=== PATIENT | female | born 1940 | race Caucasian/White ===

== ENCOUNTER 2017-06-27 02:12 | Emergency (ER) | payer MEDICARE ==
[~2017-06-27] VITALS: Ht 154.9 cm; Wt 56.8 kg
[2017-06-27 02:09] VITALS: BP 149/73; PULSE 89; RESP 17; O2SAT 92
[~2017-06-27 02:12] MED LIST: ALBU8.5H2 IH; BUDE0.5A2 IH; IPRA0.2S51 IH; IPRA3AMP18 IH; PANT40TA3 PO; PRE20 PO
[2017-06-27 02:23] LABS: BASOPHILS % (AUTO) 0.2 % (0-3); MONOCYTES % (AUTO) 5.7 % (4-12); Mean Corpuscular Hemoglobin 30.2 pg (27.0-35.0); Mean Corpuscular Volume 90.5 fL (81-100); NEUTROPHILS % (AUTO) 66.2 % (40-74); Platelet Count 276 bil/L (150-400)
--- NOTE | 2017-06-27 03:02 | ED.REPORT ---
HPI-Chest Pain 40 and Over Date of Service Jun 27, 2017 ED Provider: Darian Hester MD Pt is a 76 y/o female with a history of COPD who presents to the ED via EMS c/o burning sensation in her lungs onset yesterday. Additional symptoms include nausea, diarrhea, neck pain from spinal stenosis, and a productive cough. She denies fever. She saw her PCP yesterday and was started on augmentin. Nursing Notes Stated Complaint: CHEST PAIN Chief Complaint: Chest Pain Nursing Notes Reviewed: Yes Allergies: Coded Allergies: carisoprodol (Verified Allergy, Severe, PARALYZATION FROM NECK DOWN, ) Molds and Smuts (Verified Allergy, Unknown, ASTHMA, 06/27/17) Uncoded Allergies: ZPACK (Allergy, Unknown, 03/15/16) Scheduled Budesonide Neb Soln (Budesonide Neb Soln) 0.5 Mg/2 Ml Ampul.neb 0.5 MG IH BID Ipratropium [place] (Ipratropium [place] Inhalant Solution) 0.2 Mg/1 Ml Solution 0.2 MG IH QID Pantoprazole DR (Pantoprazole DR) 40 Mg Tablet.dr 40 MG PO DAILY Pantoprazole DR (Pantoprazole DR) 40 Mg Tablet.dr 40 MG PO BID Prednisone (PredniSONE) 20 Mg Tablet 40 MG PO DAILY Scheduled PRN Albuterol HFA (Proair HFA) 8.5 Gm Hfa.aer.ad 2 PUFFS IH Q4 PRN PRN For Shortness of Breath Ipratropium/Albuterol Sulfate (Duoneb 0.5 mg-3 mg/3 ml Soln) 3 Ml Ampul.neb 1 NEB IH QID PRN PRN For Shortness of Breath General Time Seen by MD: 03:01 Chief Complaint Chest pain Hx Obtained From: Patient, Daughter Sudden in Onset?: Yes Onset Occurred: Yesterday Symptom Duration: Constant Quality: Painful Severity: Current: Moderate Severity: Maximum: Moderate Recent Healthcare: No recent doctor visit, No recent hospitalization Similar Sx Previous: No Past Medical History Past Medical History Arthritis Reports: Asthma, COPD, GERD Past Surgical History Tubal ligation Smoking History Former Smoker Social History Other Social History: Good social support, Local resident Ambulatory Status Independent Review of Systems Constitutional: Denies: Chills, Fever Respiratory: Reports: Prod cough, clear Cardiovascular: Reports: Chest pain (burning sensation in lungs ) GI: Reports: Diarrhea, Nausea Musculoskeletal: Reports: Neck pain Psychiatric: Denies: Change mental status Complete sys rev & neg: except as marked. Physical Exam Initial Vital Signs Vital Signs (First) Date Time Temp Pulse Resp B/P Pulse Ox O2 Delivery O2 Flow Rate FiO2 06/27/17 02:09 36.6 89 17 149/73 92 Nasal Cannula 2 Initial VS: Reviewed Neck: Supple, Full range of motion Extremities: Vascular intact, Neuro intact, No swelling, No tenderness Skin: Warm, Dry, No cyanosis Neurologic: Alert, Oriented, Nonfocal Psychiatric: Mood/affect normal, Behavior normal, Normal thought content General/Constitutional: Awake, Alert Respiratory / Chest: Atraumatic, Breath sounds NL, Breath sounds = bilat, No respiratory distress Cardiovascular: Heart rate NL, Regular rhythm, Heart sounds NL Abdomen: Atraumatic Tenderness/Guarding/Rebound: Positive: Tender epigastric Interpretation & Diagnostics Lab Results Interpretation Result Diagram: 06/27/17 0220 06/27/17 0220 Test 06/27/17 02:20 06/27/17 04:58 White Blood Count 9.1th/mm3 (3.8-10.1) Red Blood Count 4.21mil/mm3 (3.90-5.20) Hemoglobin 12.7g/dL (12.0-15.6) Hematocrit 38.1% (35.0-46.0) Mean Corpuscular Volume 90.5fL (81-100) Mean Corpuscular Hemoglobin 30.2pg (27.0-35.0) Mean Corpuscular Hemoglobin Concent 33.3% (32.0-37.0) Red Cell Distribution Width 12.3% (12.3-15.4) Platelet Count 276bil/L (150-400) Neutrophils (%) (Auto) 66.2% (40-74) Lymphocytes (%) (Auto) 26.7% (14-46) Monocytes (%) (Auto) 5.7% (4-12) Eosinophils (%) (Auto) 1.0% (0-5) Basophils (%) (Auto) 0.2% (0-3) Sodium Level 128mEq/L (134-144) Potassium Level 4.3mEq/L (3.5-5.2) Chloride Level 86mEq/L (97-108) Carbon Dioxide Level 25mmol/L (18-29) Blood Urea Nitrogen 8mg/dL (8-27) Creatinine 0.41mg/dL (0.57-1.00) Estimat Glomerular Filtration Rate 217mL/min (>59) Glucose Level 135mg/dL (60-99) Calcium Level 9.4mg/dL (8.5-10.1) Magnesium Level 1.9mg/dL (1.6-2.6) Total Bilirubin 0.4mg/dL (0.0-1.2) Aspartate Amino Transf (AST/SGOT) 18U/L (0-50) Alanine Aminotransferase (ALT/SGPT) 13U/L (0-32) Alkaline Phosphatase 60U/L (25-165) Total Protein 7.0g/dL (6.4-8.4) Albumin 4.2g/dL (3.4-5.0) Troponin T < 0.010ug/L (0.0-0.011) ECG Interpretation ECG Interpretation: Sinus rhythm, rate 81 Atrial premature complex Time: 02:13 Interpreted by: ED physician X-Ray Chest Interpretation Chest Xray Interpretation: Negative View: Portable, 1 view Interpretation / Wet Read by: Wet read ED physician Re-Eval/Medical Decision Med Decision/Clinical Course 76-year-old COPD presents with bile reflux and cough. Her situation is worsened by chronic cervical stenosis and pain made worse by her cough. She is much improved here after some Dilaudid, Protonix, Zofran, and antacid. Discharged now in stable condition. Source of Hx: Old records Time of Eval: 04:50 Patient Status: Condition improved Re-Evaluation/Progress Note: Patient rechecked. Discussed plan for discharge. Patient understands and agrees with plan. F/U instructions and RTER warnings given. All questions addressed at this time. Counseled Regarding: Diagnosis, Lab results, Need for follow-up, When/why to return to ED Discharge & Departure Primary Impression: Acid reflux Esophagitis presence: esophagitis presence not specified Qualified Code: K21.9 - Gastro-esophageal reflux disease without esophagitis Additional Impressions: Spinal stenosis in cervical region COPD (chronic obstructive pulmonary disease) COPD type: unspecified COPD Qualified Code: J44.9 - Chronic obstructive pulmonary disease, unspecified Esophagitis Disposition: Home Discharge Condition All VS Reviewed: Yes Condition: Stable Patient Instructions: Esophageal Spasm (ED) Additional Instructions: Increase your Protonix to twice daily. Avoid acid foods, caffeine, alcohol, chocolate, fats, milk. Avoid eating before bedtime. Eat small more frequent feedings rather than large meals. Follow-up with your doctor in the office. Return if any immediate issues. Take an entire Vicodin or even two Vicodin if your pain is severe. Referrals: Azeb Hdz (PCP) Scribe Attestation Portions of this note were transcribed by Neema Capellan. I, Dr. Hester, personally performed the history, physical exam and medical decision-making; I reviewed and confirmed the accuracy of the information in the transcribed note. copies to: Azeb Hdz Christopher W MD Jun 27, 2017 03:02 Neema Capellan Jun 27, 2017 03:23
[2017-06-27 03:11] LABS: TROPONIN T 0.01 ug/L (0.0-0.011)
[2017-06-27 03:22] LABS: Magnesium 1.9 mg/dL (1.6-2.6)
[2017-06-27] MEDS ORDERED: Pantoprazole 4 mg/mL 10 mL Inj IVPUSH ONE (03:25)
[2017-06-27] MEDS ORDERED: Ondansetron 2 mg/mL 2 mL Inj IVPUSH ONE (03:25)
[2017-06-27] MEDS ORDERED: Albuterol-Ipratropium 3 mL Inhalation Solution NEB ONE (03:25)
[2017-06-27] MEDS ORDERED: HYDROmorphone 0.5 mg/0.5 mL iSecure Syringe IVPUSH ONE (03:25)
[2017-06-27 03:52] VITALS: BP 131/63; PULSE 75; RESP 16; O2SAT 90
[2017-06-27 03:57] VITALS: PULSE 74; RESP 18; O2SAT 90
[2017-06-27] MEDS ORDERED: PANT40TA3 PO (05:51)
[2017-06-27 06:25] VITALS: BP 114/61; PULSE 84; RESP 13; O2SAT 94
--- NOTE | 2017-06-27 10:13 | DRSVH ---
PROCEDURE: X-RAY CHEST ONE VIEW, PORTABLE ([id number]) INDICATIONS: chest pain TECHNIQUE: One view of the chest was acquired. COMPARISON: [facility], , CHEST 2VW, 01/11/2015, 8:47. FINDINGS: Surgical changes and devices: None. Lungs and pleura: No pleural effusions or pneumothorax. Lungs are clear. Mediastinum: Mediastinal contours appear normal. Heart size is normal. Bones and chest wall: No suspicious bony lesions. Soft tissues appear unremarkable. IMPRESSION: COPD, no acute disease. Source of pain is not found. Dictated by: Cesar Villa M.D. on 06/27/2017 at 10:11 Approved by: Cesar Villa M.D. on 06/27/2017 at 10:12
== END 2017-06-27 06:25 | disposition home or self-care (01) ==
LOC: EDBD 02:12 → SED 02:12
DX: K21.0 Gastro-esophageal reflux disease with esophagitis (principal); J44.9 Chronic obstructive pulmonary disease, unspecified; M48.02 Spinal stenosis, cervical region; R19.7 Diarrhea, unspecified; J45.909 Unspecified asthma, uncomplicated; Z87.891 Personal history of nicotine dependence; Z88.8 Allergy status to other drugs, medicaments and biological substances
CPT/HCPCS: 36415; 71010; 80053; 83735; 84484; 85025; 93005; 94664; 96374; 96375; 99285; J1170; J2060; J2405; J7620; S0164